=== PATIENT | female | born 1950 | race Caucasian/White ===

== ENCOUNTER 2017-01-29 19:50 | Observation (INO) | payer MEDICARE ==
[2017-01-29] MEDS ORDERED: ONDANSETRON 4 MG/2ML 2 ML VIAL IV PRN ×2 (19:59→22:58)
[2017-01-29] MEDS ORDERED: SODIUM CHLORIDE 0.9% 1,000 ML IV SCH (20:00)
[2017-01-29] MEDS ORDERED: IV START KIT ONE (20:41)
[2017-01-29] MEDS ORDERED: SODIUM CHLORIDE 0.9% FLUSH 10 ML ONE (20:41)
[2017-01-29 20:57] VITALS: BMI 20.6
[2017-01-29] MEDS ORDERED: PUMP TUBING ONE (21:05)
[2017-01-29 21:30] LABS: ABSOLUTE NEUTROPHIL COUNT 5.1 K/mm3 (1.8-7.7); BASO # 0.1 K/mm3 (0.0-0.2); BASO % 0.9 % (0.2-1.0); EOS # 0.1 (0.0-0.5); EOS % 0.8 % (0.9-2.9); HEMATOCRIT 45.3 % (37.0-47.0); HEMOGLOBIN 15.8 gm/l (12.0-16.0); IMM NEUT # 0.1 K/mm3 (0-0.2); IMM NEUT% 0.6 % (0-1); LYMPH # 1.9 (1.0-4.8); LYMPH % 24.2 % (15-45); MEAN CELL VOLUME 88.3 fl (81.0-99.0); MEAN CORPUSCULAR HEMOGLOBIN 30.8 pg (27.0-31.0); MEAN CORPUSCULAR HGB CONC 34.9 g/dl (33.0-37.0); MEAN PLATELET VOLUME 9.9 fl (7.4-10.4); MONO # 0.7 (0.0-0.8); MONO % 8.2 % (4-12); NEUT % 65.3 % (43-75); PLATELET COUNT 329 K/mm3 (130-400); RED CELL DISTRIBUTION WIDTH 15.7 % (11.5-14.5)
[2017-01-29 21:44] LABS: ALB/GLOB RATIO 1.2 (>1.0); ALBUMIN 4.2 gm/dL (3.5-5.7); CALCIUM 10.3 mg/dL (8.6-10.3); MAGNESIUM 2.3 mg/dL (1.9-2.7)
[2017-01-29] MEDS ORDERED: POTASSIUM CHLORIDE 40 MEQ in SODIUM CHLORIDE 0.9% 500 ML IV ONE (22:22)
[2017-01-29] MEDS: POTASSIUM CHLORIDE 10MEQ/100ML 100 ML IV SCH (22:51)
[2017-01-29] MEDS ORDERED: BISACODYL 10 MG SUP PR PRN (22:52)
[2017-01-29] MEDS ORDERED: MENTHOL/CETYLPYRD 1 EACH LOZENGE PO PRN (22:52)
[2017-01-29] MEDS ORDERED: BISACODYL 5 MG TABLET.EC PO PRN (22:52)
[2017-01-29] MEDS ORDERED: SODIUM CHLORIDE 0.9% 100 ML IV PRN (22:52)
[2017-01-29] MEDS ORDERED: BLISTEX LIPSTICK 1 EACH TP PRN (22:52)
[2017-01-29] MEDS ORDERED: MAGNESIUM HYDROXIDE 30 ML UDCUP PO PRN (22:52)
[2017-01-29] MEDS ORDERED: QUETIAPINE FUMARATE 25 MG TABLET PO SCH (23:00)
[2017-01-29] MEDS: SODIUM CHLORIDE 0.9% 1,000 ML IV SCH (23:53)
[2017-01-30] MEDS: POTASSIUM CHLORIDE 10MEQ/100ML 100 ML IV SCH ×4 (04:31→10:16)
[2017-01-30 06:18] LABS: INR 1.14; PROTHROMBIN TIME 12.1 SECONDS (9.3-11.4)
[2017-01-30 06:28] LABS: CALCIUM 9.1 mg/dL (8.6-10.3)
--- NOTE | 2017-01-30 07:14 | HP ---
Fina Hai ADMIT DATE: 01/29/2017 CHIEF COMPLAINT: Weakness and failure to thrive. HISTORY OF PRESENT ILLNESS: Fina is a 66-year-old female with multiple chronic medical problems including a history of alcoholic end stage liver disease. She was actually on hospice up until a year ago. In the last few months she has been found to have multiple pulmonary nodules suspicious for metastases. She has also been found on a MRI to have multiple lesions throughout her brain, again suspicious for metastases. She developed a seizure disorder in October. Throughout all this time she maintained that she does not wish to have an invasive workup and so most of her interventions have been simply waiting, watching, and retesting. In the last 3 to 4 weeks she has had increasing weakness and increasing number of falls. She has lost about 10 pounds. She has had markedly decreased oral intake and increasing nausea and vomiting. They contacted her primary care provider, Lonny Brice this evening and he offered the option of coming to the hospital for rehydration and basic lab workup. Fina and her caregiver did elect to do so and they then presented for direct admission. As part of her neurologic follow up she does have an repeat EEG scheduled for this weekend and a repeat MRI is being ordered by her neurologist and is pending. REVIEW OF SYSTEMS: No headache, no visual disturbance, no difficulty swallowing, no chest pain, no abdominal pain, no diarrhea, no extremity weakness, numbness, tingling, or swelling. She does have the weakness and increasing falls as noted above. She has had no injuries when she has fallen. ALLERGIES: No known drug allergies. CURRENT MEDICATIONS: None, the patient has discontinued her Keppra and Seroquel, as well as her oral potassium. OBJECTIVE: VITAL SIGNS: Stable. She is afebrile. GENERAL: This is a cachectic appearing female. She is alert, calm, in no acute distress laying in bed. HEENT: Benign. LUNGS: Clear. HEART: Regular. ABDOMEN: Soft. She does have some tenderness to palpation in the bilateral upper quadrants. No true rebound, guarding, organomegaly. EXTREMITIES: No edema. LABORATORY: CBC with a white count of 7.9, hemoglobin 15.8, hematocrit 45.3, platelets of 329. Chemistry panel, sodium 130, potassium 2.8, chloride 87, carbon dioxide 24, BUN 36, creatinine 1.3, glucose 84. Total bilirubin is elevated at 1.5. AST 19, ALT 12, alk phos 97, ammonia level is normal at 38. Urinalysis is pending. ASSESSMENT: Failure to thrive in context of known pulmonary nodules and brain lesions suspicious for metastatic disease. Patient does not desire any invasive workup therefore, tonight we will simply rehydrate her with normal saline. We will replace her potassium and reevaluate her in the morning. We will have physical therapy and occupational therapy work with her as well. I suspect we will not have much to offer her as far as interventions and I anticipate she will most likely be discharged back home in the morning. Patient does verbalize and her caregiver reaffirms that if she does have some underlying malignancy that she would wish to be transitioned back to hospice and not have any further interventions. JOB: [id number] CC: Lonny Brice
[2017-01-30 07:15] VITALS: BP 90/70
[2017-01-30] MEDS ORDERED: Potassium Chloride ORAL SOLN 20 MEQ/15 ML UDCUP PO SCH (09:00)
[2017-01-30] MEDS: SODIUM CHLORIDE 0.9% 1,000 ML IV SCH (09:16)
[2017-01-30] MEDS ORDERED: POTASSIUM CHLORIDE 30 MEQ in SODIUM CHLORIDE 0.9% 500 ML IV ONE (09:30)
--- NOTE | 2017-01-30 11:32 | DS ---
Fina Valles ADMIT DATE: 01/29/2017 DISCHARGE DATE: 01/30/2017 ADMIT DIAGNOSES: 1. Failure to thrive in the context of suspected metastatic cancer, not otherwise specified. 2. History of alcoholic liver disease with a history of being on hospice, off hospice now times one year. 3. Desire for primarily palliative noninvasive measures. DISCHARGE DIAGNOSES: 1. Failure to thrive in the context of suspected metastatic cancer, not otherwise specified. 2. History of alcoholic liver disease with a history of being on hospice, off hospice now times one year. 3. Desire for primarily palliative noninvasive measures. ADMIT HISTORY AND PHYSICAL: Please see my note for details. Briefly, Fina is a 66-year-old female with multiple chronic medical problems including a history of alcoholic end stage liver disease having been on hospice up until one year ago. In the preceding months she has had findings of a pulmonary nodules of unclear etiology as well as brain lesions of unclear etiology. It is felt likely she has some type of metastatic cancer. She has declined any further workup at this point. She has also had onset of seizures and is being followed by neurology. She was directly admitted from home at the request of Lonny Brice her primary provider due to failure to thrive, weakness, nausea, etc over the last week or two. HOSPITAL COURSE: She was admitted. We did do some basic lab work which showed her chronic hypokalemia, but really no other acute medical issues. Her ammonia level was normal. Lab work was otherwise unremarkable. We did some gentle IV fluid rehydration and potassium replacement overnight. On the morning of discharge she was feeling better and was wishing to go home. We really do not have any other medical interventions to offer her at this point and so she is discharged with plans for close outpatient follow up. She is scheduled for a repeat EEG later this week and is under the care of neurology and Lonny Brice to continue working things up. She did again reiterate if she does have an underlying malignancy or other terminal illness she simply wants to be placed back on hospice and does not wish to have any further invasive workup. DISCHARGE MEDICATIONS: 1. I have given her a prescription for Zofran ODT 4 mg every 4 hours as needed, #20 with no refills. 2. Potassium chloride 20mEq/15mL, 15 mL by mouth twice daily. DISCHARGE FOLLOW UP: Will be with Lonny Brice as scheduled. JOB: [id number] CC: Lonny Brice
== END 2017-01-30 10:50 | disposition home or self-care (01) ==
LOC: MS 19:50
PROVIDERS: ADMIT Family Medicine; ATTEND Family Medicine
DX: R62.7 Adult failure to thrive (principal); C80.1 Malignant (primary) neoplasm, unspecified; C79.31 Secondary malignant neoplasm of brain; K70.9 Alcoholic liver disease, unspecified; Z51.5 Encounter for palliative care
CPT/HCPCS: 82140; 85025; 80048; 80053; 83735; 85610; 36415 ×2; 97535; 97166; J3480 ×2; A9270 ×2; J7040; J7030 ×2; G8987; G8988